=== PATIENT | female | born 1930 | race Caucasian/White ===

== ENCOUNTER → 2017-04-02 | Outpatient (CLI) | payer MEDICARE ==
[~2017-04-02] MED LIST: ALPR.25 PO; ATOR40TA49 PO; COUM5TAB PO; DIGO0.12 PO; METO50TA PO; OMEP20TA39 PO; REST30CA PO; VITA20002 PO
--- NOTE | 2017-04-04 08:46 | RSPPFT ---
DATE OF PROCEDURE: 04/02/17 COMMENTS: Spirometry with FVC of 2.1, FEV1 of 1.3, FEV1/FVC ratio at 63%. A non-significant response to acutely inhaled bronchodilator noted. Slow vital capacity is 59% of predicted. TLC is 80%. Diffusion capacity is inaccurate. IMPRESSION: 1. Moderately severe airways obstruction. 2. No evidence of airways restriction. 3. Positive but non-significant response to inhaled bronchodilator.
== END ==
LOC: HRSP 09:46
PROVIDERS: ATTEND Family Medicine
DX: I50.9 Heart failure, unspecified (principal); R06.02 Shortness of breath
CPT/HCPCS: 94060; 94726; 94729